=== PATIENT | female | born 1960 | race Caucasian/White ===

== ENCOUNTER 2019-06-15 19:23 | Emergency (ER) | payer BC ==
[~2019-06-15] VITALS: Ht 167.6 cm; Wt 96.2 kg
[2019-06-15 19:46] VITALS: Ht 167.6 cm; Wt 96.2 kg
[2019-06-15 21:40] VITALS: BP 124/77
== END 2019-06-15 21:40 | disposition home or self-care (01) ==
LOC: ED 19:23
DX: H92.02 Otalgia, left ear (principal)